=== PATIENT | female | born 1960 | race Caucasian/White ===

== ENCOUNTER 2019-02-26 09:37 | Day surgery (SDC) | payer OTHER ==
[2019-02-26 07:32] VITALS: BMI 27.9
[2019-02-26 13:19] VITALS: TEMP 97.5
[2019-02-26 14:35] VITALS: BP 159/91; PULSE 60
--- NOTE | 2019-02-27 17:04 | PATH ---
Surgical Pathology Report Patient Name: RENETTA OVALLES [facility]. Rec. #: [id number] /Age/Gender: 1960 (Age: 58) / F Account: [id number] Location: U-ENDOSCOPY Taken: 02/26/2019 Received: 02/26/2019 Reported: 02/27/2019 Physicians: Delta Fournier D.O. Specimen(s) Received A: ANTRUM EROSION B: BODY/ANTRUM Clinical History Dyspepsia, abdominal pain Postoperative diagnosis: Gastritis Final Diagnosis A. ANTRUM EROSION, BIOPSY: GASTRIC MUCOSA WITH CHRONIC GASTRITIS AND REACTIVE GASTROPATHY. IMMUNOSTAIN FOR H. PYLORI IS NEGATIVE. POSITIVE FOR INTESTINAL METAPLASIA. B. BODY/ANTRUM, BIOPSY: GASTRIC MUCOSA WITH CHRONIC GASTRITIS. IMMUNOSTAIN FOR H. PYLORI IS NEGATIVE. NEGATIVE FOR INTESTINAL METAPLASIA. Electronically Signed Tom Kulkarni M.D. Gross Description A. Received in formalin, labeled "biopsy antral erosion" are 2 dupont, irregular portions of soft tissue measuring 0.3 and 0.4 cm. in greatest dimension. The specimens are submitted in toto in one cassette. B. Received in formalin, labeled "biopsy body/antrum" are 2 dupont, irregular portions of soft tissue measuring 0.2 and 0.5 cm. in greatest dimension. The specimens are submitted in toto in one cassette. /02/26/201902/26/2019
== END 2019-02-26 14:35 | disposition home or self-care (01) ==
LOC: MERGE 09:37 → JASU-ENDO 09:37
PROVIDERS: ATTEND Internal Medicine Gastroenterology
PROC: 0DB68ZX Excision of Stomach, Via Natural or Artificial Opening Endoscopic, Diagnostic (ICD-10-PCS; principal; 2019-02-26 11:00)
DX: K25.9 Gastric ulcer, unspecified as acute or chronic, without hemorrhage or perforation (principal); R10.13 Epigastric pain; K44.9 Diaphragmatic hernia without obstruction or gangrene; I10 Essential (primary) hypertension; J44.9 Chronic obstructive pulmonary disease, unspecified
CPT/HCPCS: 88305-TC; 88342-TC

== ENCOUNTER 2021-11-12 13:07 | Emergency (ER) | payer OTHER ==
[2021-11-12 13:21] VITALS: BP 122/73; PULSE 63; TEMP 98.1; BMI 27.6
[2021-11-12] MEDS ORDERED: SODIUM CHLORIDE 0.9% 500 ML INFUS.BAG IV ONE (14:30)
[2021-11-12 15:17] LABS: BASO % 0.8 % (0-2.0); EOS % 2.9 % (0-4.5); HEMOGLOBIN 13.5 GM/dL (10.7-15.3); LYMPH % 31.2 % (8-40); MCH 29.7 pg (25.7-33.7); MCHC 32.9 g/dl (32.0-36.0); MEAN CELL VOLUME 90.1 fl (80-96); MEAN PLT VOLUME 11.3 fl (7.5-11.1); MONO % 8.9 % (3.8-10.2); NEUT % 56.2 % (42.8-82.8); PLATELET COUNT 211 10^3/uL (134-434); RBC 4.55 M/mm3 (3.60-5.2); RDW 14.6 % (11.6-15.6)
[2021-11-12 15:35] LABS: EPI CELLS 9 /uL (0-25.1); HYALINE CASTS 1 /uL (0-3.1); URINE APPEARANCE CLEAR; URINE BACTERIA 4017 /uL (0-1359); URINE BILIRUBIN NEGATIVE (NEGATIVE); URINE COLOR YELLOW; URINE GLUCOSE (UA) NEGATIVE (NEGATIVE); URINE KETONE NEGATIVE (NEGATIVE); URINE LEUK ESTERASE 3+ (NEGATIVE); URINE NITRITE NEGATIVE (NEGATIVE); URINE PROTEIN NEGATIVE (NEGATIVE); URINE RBC 3 /uL (0-23.9); URINE UROBILINOGEN 0.2 mg/dL (0.2-1.0); URINE WBC 147 /uL (0-25.8)
[2021-11-12 15:43] LABS: CALCIUM 9.9 mg/dL (8.5-10.1)
[2021-11-12 15:44] LABS: ALBUMIN 4.5 g/dl (3.4-5.0); BLOOD UREA NITROGEN 19.4 mg/dL (7-18)
[2021-11-12 15:47] LABS: CREATININE 0.8 mg/dL (0.55-1.3)
[2021-11-12 15:48] LABS: TOT PROT 7.9 g/dl (6.4-8.2)
[2021-11-12 15:49] LABS: BILIRUBIN,TOTAL 0.5 mg/dL (0.2-1)
[2021-11-12] MEDS ORDERED: CEPHALEXIN MONOHYDRATE 500 MG CAPSULE (UD) PO ONE (16:00)
[2021-11-12] MEDS ORDERED: CEPHALEXIN MONOHYDRATE 500 MG CAPSULE (UD) ONE (16:11)
[2021-11-12 22:04] LABS: INR 0.97 (0.83-1.09); PROTHROMBIN TIME (PATIENT) 11.2 SEC (9.7-13.0)
[2021-11-12 22:06] LABS: ACTIVATED PTT 28.6 SECONDS (25.2-36.5)
== END 2021-11-12 16:26 | disposition home or self-care (01) ==
LOC: JER 13:07
DX: R53.1 Weakness (principal); I95.9 Hypotension, unspecified; N39.0 Urinary tract infection, site not specified
CPT/HCPCS: 0241U-QW; 36415; 71045-TC-FY; 80053; 81003; 84443; 84484; 85025; 85610; 85730; 86850; 86900; 86901; 87086; 87186; 99284-25

== ENCOUNTER 2023-04-24 04:18 | Day surgery (SDC) | payer OTHER ==
[2023-04-20 10:44] VITALS: BMI 26.7
[~2023-04-24 04:18] MED LIST: BUPIVACAINE HCL/PF 0.5% (5 MG/ML) 30 ML VIAL IJ ONE; LIDOCAINE HCL 1%, 10 MG/ML (20ML VIAL) INF ONE
[2023-04-24] MEDS ORDERED: PROMETHAZINE HCL 25 MG/1 ML VIAL IVPB PRN (09:34)
[2023-04-24] MEDS ORDERED: ONDANSETRON 4 MG/2 ML VIAL IVPUSH PRN (09:34)
[2023-04-24] MEDS ORDERED: ACETAMINOPHEN 1000 MG/100 ML BAG IVPB PRN (09:34)
[2023-04-24] MEDS ORDERED: oxyCODONE HCL 5 MG TABLET PO PRN ×3 (09:34→10:16)
[2023-04-24] MEDS ORDERED: MIDAZOLAM HCL 2 MG/2 ML SINGLE DOSE VIAL ONE (09:42)
[2023-04-24] MEDS ORDERED: PROPOFOL 20 ML ONE ×2 (09:42→10:41)
[2023-04-24] MEDS ORDERED: LACTATED RINGERS SOLUTION 1,000 ML IV SCH ×2 (09:45→10:30)
[2023-04-24] MEDS ORDERED: KETOROLAC TROMETHAMINE 30 MG/1 ML VIAL ONE (09:49)
[2023-04-24] MEDS ORDERED: ONDANSETRON 4 MG/2 ML VIAL ONE ×2 (09:49→13:19)
[2023-04-24] MEDS ORDERED: ceFAZolin SODIUM 1 GM VIAL IVPB ONE (09:53)
[2023-04-24] MEDS ORDERED: ceFAZolin SODIUM 1 GM VIAL ONE (09:53)
[2023-04-24] MEDS ORDERED: LIDOCAINE HCL 1%, 10 MG/ML (20ML VIAL) INF ONE ×3 (10:07)
[2023-04-24] MEDS ORDERED: BUPIVACAINE HCL/PF 0.5% (5 MG/ML) 30 ML VIAL IJ ONE ×3 (10:07)
[2023-04-24] MEDS ORDERED: ACETAMINOPHEN INJECTION 100 ML IVPB ONE (12:24)
[2023-04-24 13:17] VITALS: RESP 18
[2023-04-24 13:57] VITALS: BP 127/65; PULSE 86; TEMP 97.2
== END 2023-04-24 14:10 | disposition home or self-care (01) ==
LOC: JASU-SURG 04:18
PROVIDERS: ATTEND Surgery
PROC: 07BJ0ZX Excision of Left Inguinal Lymphatic, Open Approach, Diagnostic (ICD-10-PCS; principal; 2023-04-24 10:00)
DX: R59.0 Localized enlarged lymph nodes (principal)
CPT/HCPCS: 94760

== ENCOUNTER 2025-03-04 06:20 | Day surgery (SDC) | payer OTHER ==
[2025-02-25 13:09] VITALS: BMI 25.4
[2025-03-04 08:50] VITALS: TEMP 97.3
[2025-03-04 09:44] VITALS: RESP 13
[2025-03-04 12:15] VITALS: BP 103/58; PULSE 63
== END 2025-03-04 10:00 | disposition home or self-care (01) ==
LOC: JASU-ENDO 06:20
PROVIDERS: ATTEND Internal Medicine Gastroenterology
PROC: 0DJD8ZZ Inspection of Lower Intestinal Tract, Via Natural or Artificial Opening Endoscopic (ICD-10-PCS; principal; 2025-03-04 08:00)
DX: Z12.11 Encounter for screening for malignant neoplasm of colon (principal); K64.8 Other hemorrhoids; K57.30 Diverticulosis of large intestine without perforation or abscess without bleeding